=== PATIENT | female | born 1980 | race Caucasian/White ===

== ENCOUNTER 2023-05-02 09:17 | Outpatient (OUT) | payer OTHER, SELFPAY ==
--- NOTE | 2023-05-02 | XR_ITS ---
[address] [address] Patient Name: DYLON UMANA MRN: [id number] date: 1980 Sex: F Assigned Patient Location: [facility] Current Patient Location: [facility] Accession/Order Number: [id number] Exam Date: 05/02/2023 09:30 Report Date: 05/02/2023 10:18 At the request of: ITZ VALLE Procedure: XR ankle RT min 3V Exam: Radiographs: XR ankle RT min 3V Reason for exam: RIGHT ANKLE PAIN Comparison: Plain films dated 06/29/2021 XR/XR ankle RT min 3V IMPRESSION: Mild right ankle soft tissue swelling. Mild hindfoot degenerative change. Remainder of the right ankle is unremarkable. Electronically authenticated by: LAURYN LUNA Date: 05/02/2023 10:18
== END 2023-05-02 09:18 | disposition home or self-care (01) ==
LOC: RAD 09:33
PROVIDERS: Visit Provider Podiatrist Foot & Ankle Surgery
DX: M25.571 Pain in right ankle and joints of right foot (principal)
CPT/HCPCS: 73610